=== PATIENT | male | born 1960 | race Caucasian/White ===

== ENCOUNTER 2018-01-23 01:42 | Emergency (ER) | payer BC ==
[~2018-01-23] VITALS: Ht 172.7 cm; Wt 77.1 kg
[~2018-01-23 01:42] MED LIST: ASPI81CH; EZET10; HYDACE5 PO; IBUP200; IBUP600 PO; METO25ER PO; OMEP20ER PO; OXYACE5T PO; PANT20; PROC10 PO; RABE20; RAMI5; RAMI5 PO; SIMV40 PO; TAMS.4ER PO; VALS80; ZOLP5 PO
[2018-01-23 04:09] LABS: Source, Urine Clean Catch
[2018-01-23 04:13] LABS: Bilirubin, Urine Neg (Neg); Blood, Urine Neg (Neg); Glucose Qualitative, Urine Neg (Neg); Ketones, Urine Neg (Neg); Leukocyte Esterase, Urine Neg (Neg); Nitrite, Urine Neg (Neg); Protein, Urine 2+ (Neg); Urobilinogen, Urine NORM (Normal)
[2018-01-23 04:13] LABS: BASOPHILS ABSOLUTE AUTO 0.03 K/mm3 (0.00-0.23); BASOPHILS PERCENT AUTO 0 % (0-2); EOSINOPHILS ABSOLUTE AUTO 0.04 K/mm3 (0.00-0.68); EOSINOPHILS PERCENT AUTO 0 % (0-6); Hematocrit 39.9 % (37.0-53.0); Hemoglobin 13.9 g/dL (13.5-17.5); IMMATURE GRAN ABSOLUTE AUTO 0.09 K/mm3 (0.00-0.10); IMMATURE GRAN PERCENT AUTO 1 % (0-1); LYMPHOCYTES ABSOLUTE AUTO 1.06 K/mm3 (0.84-5.20); LYMPHOCYTES PERCENT AUTO 5 % (21-46); MONOCYTES ABSOLUTE AUTO 1.13 K/mm3 (0.16-1.47); MONOCYTES PERCENT AUTO 6 % (4-13); Mean Corpuscular HGB 30.7 pg (26.0-34.0); Mean Corpuscular HGB Conc 34.8 g/dL (31.5-36.5); Mean Corpuscular Volume 88 fL (80-100); Mean Platelet Volume 9.7 fL (9.1-12.4); NEUTROPHILS ABSOLUTE AUTO 17.65 K/mm3 (1.96-9.15); NEUTROPHILS PERCENT AUTO 88 % (41-73); Platelet Count 332 K/mm3 (150-400); RDW Coefficient Variation 11.6 % (11.7-14.2); RDW Standard Deviation 37.2 fL (35.1-46.3); Red Blood Cell Count 4.53 M/mm3 (4.30-5.90)
[2018-01-23 04:19] LABS: Appearance, Urine Clear (Clear); Bacteria Few /hpf; Color, Urine Yellow (P-Yellow); Mucus Mod (0-Heavy); Red Blood Cells, Urine 0-2 /hpf (0-2); Squamous Epithelial Cells Not Seen /hpf (Few); White Blood Cells, Urine 0-2 /hpf (0-5)
[2018-01-23] MEDS ORDERED: PRAV20 PO (04:19)
[2018-01-23] MEDS ORDERED: FENO160 PO (04:19)
[2018-01-23] MEDS ORDERED: ZOLP10 PO (04:19)
[2018-01-23] MEDS ORDERED: Omeprazole20 M1 PO (04:20)
[2018-01-23] MEDS ORDERED: IBUP800 PO (04:20)
[2018-01-23] MEDS ORDERED: ZESTORETIC 20-121 EA PO (04:20)
[2018-01-23 04:32] LABS: Alanine Aminotransfer (ALT/SGP 45 U/L (12-78); Albumin, Blood 4.4 g/dL (3.4-5.0); Albumin/Globulin Ratio 1.2 (0.8-1.8); Alk Phos 56 U/L (50-136); Anion Gap 9 mmol/L (6-16); Aspartate Aminotrans (AST/SGOT 23 U/L (12-37); Bilirubin, Total 0.7 mg/dL (0.1-1.0); Blood Urea Nitrogen 22 mg/dL (8-24); Bun/Creatinine Ratio 21.6 (12.0-20.0); CO2, Blood 27 mmol/L (21-32); Calcium, Blood 9.3 mg/dL (8.5-10.1); Chloride, Blood 99 mmol/L (98-108); Creatinine, Blood 1.02 mg/dL (0.60-1.20); Globulin, Blood 3.7 g/dL (2.2-4.0); Glomerular Filtration Rate >60 (60-); Glucose, Blood 128 mg/dL (70-99); Potassium, Blood 3.7 mmol/L (3.5-5.5); Sodium, Blood 135 mmol/L (136-145); Total Protein, Blood 8.1 g/dL (6.4-8.2)
[2018-01-23] MEDS ORDERED: Cipro500 MG PO (06:32)
[2018-01-23] MEDS ORDERED: Percocet 10-321 EACH PO (06:32)
[2018-01-23] MEDS ORDERED: METR500 PO (06:32)
== END 2018-01-23 06:49 | disposition home or self-care (01) ==
LOC: ER 01:42
PROVIDERS: Emergency Medicine
DX: K57.32 Diverticulitis of large intestine without perforation or abscess without bleeding (principal); Z88.0 Allergy status to penicillin; Z88.1 Allergy status to other antibiotic agents; Z79.899 Other long term (current) drug therapy; I10 Essential (primary) hypertension; E78.5 Hyperlipidemia, unspecified
CPT/HCPCS: 36415; 74177; 80053; 81001; 83690; 85025; 96374; 99284; J2405; Q9967

== ENCOUNTER → 2018-07-18 | Outpatient (CLI) | payer BC ==
[~2018-07-18] MED LIST changes: +Cipro500 MG PO; +FENO160 PO; +IBUP800 PO; +METR500 PO; +Omeprazole20 M1 PO; +PRAV20 PO; +Percocet 10-321 EACH PO; +ZESTORETIC 20-121 EA PO; +ZOLP10 PO
[2018-07-18 13:29] LABS: Campylobacter Sp Not Detected (NOT DETECT); Plesiomonas Shigelloides Not Detected (NOT DETECT)
[2018-07-18 13:30] LABS: Adenovirus F 40/41 Not Detected (NOT DETECT); Astrovirus Not Detected (NOT DETECT); Cryptosporidium Not Detected (NOT DETECT); Cyclospora Cayetanensis Not Detected (NOT DETECT); E. Coli O157 Not Detected (NOT DETECT); Entamoeba Histolytica Not Detected (NOT DETECT); Enteroaggregative E. coli-EAEC Not Detected (NOT DETECT); Enteropathogenic E. coli-EPEC Not Detected (NOT DETECT); Enterotoxigenic E. coli-ETEC Not Detected (NOT DETECT); Giardia Lamblia Not Detected (NOT DETECT); Norovirus GI/GII Not Detected (NOT DETECT); Rotavirus A Not Detected (NOT DETECT); Salmonella Sp Not Detected (NOT DETECT); Sapovirus Not Detected (NOT DETECT); Shiga Toxin-prod E. coli-STEC Not Detected (NOT DETECT); Shigella/Enteroin E. coli-EIEC Not Detected (NOT DETECT); Vibrio Cholerae Not Detected (NOT DETECT); Vibrio Sp Not Detected (NOT DETECT); Yersinia Enterocolitica Not Detected (NOT DETECT)
== END ==
LOC: LAB 13:00 → LAB SHORT 13:00
PROVIDERS: Internal Medicine Gastroenterology
DX: R10.9 Unspecified abdominal pain (principal)
CPT/HCPCS: 83993; 87507

== ENCOUNTER 2018-09-17 08:52 | Day surgery (SDC) | payer BC ==
[~2018-09-17] VITALS: Ht 172.7 cm; Wt 77.3 kg
[~2018-09-17 08:52] MED LIST changes: +Aspir 8181 MG PO; +ERGO400 PO; +MULTI VITAMIN1 EACH PO; +Pravachol40 MG PO; +RIFA550T2 PO; +Vitamin B Comple1 EA PO; +ZESTORETIC 20-251 EA PO
[2018-09-17] MEDS ORDERED: TACR1 (09:25)
== END 2018-09-17 11:44 | disposition home or self-care (01) ==
LOC: ORSCSDS 08:52
PROVIDERS: Internal Medicine Gastroenterology
PROC: 0DBL8ZX Excision of Transverse Colon, Via Natural or Artificial Opening Endoscopic, Diagnostic (ICD-10-PCS; principal; 2018-09-17 10:15)
DX: K57.30 Diverticulosis of large intestine without perforation or abscess without bleeding (principal); D12.3 Benign neoplasm of transverse colon; I10 Essential (primary) hypertension; E78.00 Pure hypercholesterolemia, unspecified; E78.5 Hyperlipidemia, unspecified; E83.119 Hemochromatosis, unspecified; K21.9 Gastro-esophageal reflux disease without esophagitis; F32.9 Major depressive disorder, single episode, unspecified
CPT/HCPCS: 88305; J7120

== ENCOUNTER 2024-05-16 15:49 | Inpatient (IN) | payer BC ==
[~2024-05-16] VITALS: Ht 170.2 cm; Wt 68.0 kg
[~2024-05-16 15:49] MED LIST changes: -LEVO750 PO; -MIRALAX17 GM PO
[2024-05-16] MEDS ORDERED: Cefepime HCl 1,000 MG in NS 100 ML IV SCH (18:00)
[2024-05-16] MEDS ORDERED: FLU VACC TS2024-25(6MOS UP)/PF 45 MCG/0.5 ML SYRINGE IM SCH (18:05)
[2024-05-16] MEDS ORDERED: Ondansetron HCl 2 MG / ML 2ML Vial IV PRN (18:05)
[2024-05-16] MEDS ORDERED: NS 1,000 ML IV SCH (18:05)
[2024-05-16] MEDS ORDERED: FentaNYL Citrate 50 MCG/ML 2 ML Injection IV PRN (18:10)
[2024-05-16] MEDS ORDERED: MetroNIDAZOLE 500MG/NS 100 ml 100 ML IV SCH (18:30)
[2024-05-16] MEDS ORDERED: Enoxaparin 40 MG/0.4 ML SYR SC SCH (19:00)
[2024-05-16 19:13] LABS: International Normalized Ratio 1.1; Prothrombin Time Results 11.7 Sec (9.7-11.5)
[2024-05-16 20:03] VITALS: BP 175/93
--- NOTE | 2024-05-16 22:02 | NUR ---
PATIENT IS A NEW ADMIT FROM THE ED. AXO X4, ARRIVED VIA W/C AND INDEPENDENT IN ROOM. DENIES CHEST PAIN, SOB, AND N/V. REPORTED NO ABDOMINAL PAIN AT THIS TIME. SPOUSE PRESENT DURING ADMIT. ON ROOM AIR. DR GUZMAN IN ROOM FOR ASSESSMENT. REPORTS ADVANCE DIET TOLERATED. TELEMETRY PLACED NSR 92 PER TECH. NS STARTED AT 75 mL/HR X ONE BAG. IV ABX INFUSED. SURGICAL CONSULT TO BE CALLED IN THE A.M. VERIFIED WITH HEEL SLICKER THAT THERE IS NO ANSWERING SERVICE. PATIENT RESTNG AT THIS TIME. MIKE.
[2024-05-17] VITALS (7 sets, daily range): BP systolic 143–179; BP diastolic 86–108
--- NOTE | 2024-05-17 04:24 | NUR ---
SHIFT SUMMARY PATIENT HAD NO ACUTE CHANGES. AXO X4 AND INDEPENDENT IN ROOM. DENIES ABDOMNEN PAIN, CHEST PAIN, SOB, AND N/V. PIV INTACT. IV ABXS INFUSED. NS INFUSING @ 75 mL/HR X ONE BAG. TELE MONITOR NSR 92. HYPERTENISVE ON ADMIT. VSS/AFEBRILE NOW. SLEPT ON/OFF. COOPERATIVE WITH CARE. DIET TOLERATED. ONLY WATER AT THIS TIME TRIALED AND DENIES DISCOMFORT. COOPERATIVE WITH CARE. CALL LIGHT IN REACH. BED IN LOWEST POSITION. WILL CONTINUE TO MONITOR UNTIL DAY SHIFT NURSE ASSUMES CARE.
[2024-05-17 07:11] LABS: BASOPHILS ABSOLUTE AUTO 0.05 K/mm3 (0.00-0.23); BASOPHILS PERCENT AUTO 1 % (0-2); EOSINOPHILS ABSOLUTE AUTO 0.16 K/mm3 (0.00-0.68); EOSINOPHILS PERCENT AUTO 2 % (0-6); Hematocrit 37.6 % (37.0-53.0); IMMATURE GRAN ABSOLUTE AUTO 0.04 K/mm3 (0.00-0.10); IMMATURE GRAN PERCENT AUTO 1 % (0-1); LYMPHOCYTES ABSOLUTE AUTO 1.12 K/mm3 (0.84-5.20); LYMPHOCYTES PERCENT AUTO 14 % (21-46); MONOCYTES ABSOLUTE AUTO 1.08 K/mm3 (0.16-1.47); MONOCYTES PERCENT AUTO 13 % (4-13); Mean Corpuscular HGB 29.9 pg (26.0-34.0); Mean Corpuscular HGB Conc 34.6 g/dL (31.5-36.5); Mean Corpuscular Volume 86 fL (80-100); Mean Platelet Volume 9.2 fL (9.1-12.4); NEUTROPHILS ABSOLUTE AUTO 5.84 K/mm3 (1.96-9.15); NEUTROPHILS PERCENT AUTO 71 % (41-73); Platelet Count 352 K/mm3 (150-400); RDW Coefficient Variation 11.9 % (11.7-14.2); RDW Standard Deviation 38.1 fL (35.1-46.3); Red Blood Cell Count 4.35 M/mm3 (4.30-5.90); White Blood Cell Count 8.29 K/mm3 (4.00-11.30)
[2024-05-17 07:54] LABS: Albumin, Blood 3.4 g/dL (3.4-5.0); Albumin/Globulin Ratio 0.9 (0.8-1.8); Bilirubin, Total 0.5 mg/dL (0.1-1.0); Bun/Creatinine Ratio 21.4 (12.0-20.0); Calcium, Blood 9.7 mg/dL (8.5-10.1); Creatinine, Blood 1.17 mg/dL (0.60-1.20); Globulin, Blood 3.6 g/dL (2.2-4.0); Potassium, Blood 4.1 mmol/L (3.5-5.5)
[2024-05-17] MEDS ORDERED: Dicyclomine HCl 20 MG Tab PO PRN (08:15)
[2024-05-17] MEDS ORDERED: Zolpidem Tartrate 5 MG Tab PO PRN (08:20)
[2024-05-17] MEDS ORDERED: HydrALAZINE HCl 20 MG / ML 1ML Vial IV PRN (08:20)
[2024-05-17] MEDS ORDERED: HYDROcodone 5-APAP 325 TAB PO PRN (08:20)
[2024-05-17] MEDS ORDERED: Docusate Sodium/Senna 1 Tab PO PRN (08:20)
[2024-05-17] MEDS ORDERED: Polyethylene Glycol 3350 17 gm PO PRN (08:25)
[2024-05-17] MEDS ORDERED: Lactobacil 2-S.Thermo-Bifido 1 1 Cap PO SCH (09:00)
[2024-05-17] MEDS ORDERED: Lisinopril 20 MG Tab PO SCH (09:00)
[2024-05-17] MEDS ORDERED: HydroCHLOROthiazide 25 mg Tab PO SCH (09:00)
[2024-05-17] MEDS ORDERED: NS 250 ML IV PRN (17:05)
--- NOTE | 2024-05-17 18:48 | NUR ---
SHIFT SUMMARY: PATIENT TOLEARTING A CLEAR/FULL LIQUID DIET. PATIENT'S BLOOD PRESSURE HAS BEEN ELEVATED; GAVE 10 MG OF IV HYDRALAZINE AND BP IMPROVED. PATIENT HAS HAD TWO TELE EVENTS OF SINUS TACHYCARDIA OF 130-140. NON SUSTAINING. PATIENT CHECKED ON BOTH TIMES AND NO SIGNS OR SYMPTOMS OF DISTRESS. EITHER BEEN UP WALKING AROUND/GOING TO THE BATHROOM. HE STATES THAT HE FELT ANXIOUS AFTER GETTING THE HYDRALAZINE. THE TELE EVENTS AND THIS WERE REPORTED TO DR. GRACIA. NO NEW ORDERS. PATIENT IN BED, CALL LIGHT WITHIN REACH, NO SIGNS OR SYMPTOMS OF DISTRESS, AT BEDSIDE, PLAN OF CARE ON GOING' IV ANTIBIOTICS.
--- NOTE | 2024-05-17 21:03 | NUR ---
CONDOMINIUM MANAGER REPORTS HR TO 150 AND SUSTAINED @ 140. PATIENT NOTED TO BE UP TO BATHROOM. BACK IN BED AND HR BACK DOWN TO ST 108. HE REPORT HIS HR WENT UP ON DAY SHIFT WELL WHEN AMBULATING TO BR INDEPENDENTLY. MIKE.
[2024-05-17] MEDS ORDERED: Acetaminophen 325 MG TABLET PO PRN (22:10)
--- NOTE | 2024-05-17 22:43 | NUR ---
CONTINUOUS DRIER OPERATOR REPORTS HR BACK UP TO 150'S AND SLOWLY BACK DOWN TO 120'S. PATIENT AGAIN REPORTS HE WAS UP TO BATHROOM INDEPENDENTLY AND HAS HIGH HR AT HOME AND SITS IN CHAIR AND WAITS FOR IT TO GO DOWN. REPORTED YATES AND TYLENOL 650 MG GIVEN PER EMAR. WCTM.
--- NOTE | 2024-05-17 23:35 | NUR ---
BP 179/106 AND IV APRESOLINE 10 MG GIVEN FOR BP >160 BP 152/94 WHEN REASSESSED.
--- NOTE | 2024-05-18 00:19 | NUR ---
PATIENT RESTING IN BED. HEADACHE RESOLVED. HR ST 112 DOWN FROM 120'S. IV ABX'S INFUSING. PATIENT REFUSING AMBIEN FOR INSOMNIA AT THIS TIME. WCTM.
[2024-05-18 04:28] VITALS: BP 144/95
--- NOTE | 2024-05-18 04:39 | NUR ---
SHIFT SUMMARY PATIENT REPORTS MORE ANXIOUS THIS SHIFT SINCE DR FRIED RECOMMENDED SURGERY. REAL ESTATE AGENT/BROKER REPORTED MULTIPLE HR EVENTS UP TO ST 150 WHEN PATIENT UP TO BATHROOM INDEPENDENTLY. HR SLOWLY COMES DOWN WHEN BACK IN BED RESTING. CURRENTLY ST 108. PIV INTACT. IV ABXS INFUSED. FEBRILE START OF SHIFT 100.0 AND BACK DOWN TO 98.6 ON OWN. REPORTED YATES X ONE AND TYLENOL 650 MG GIVEN WITH GOOD EFFECT. BP ELEVATED AT START OF SHIFT 179/106 AND NOW 144/95. IV APRESOLINE 10 MG GIVEN (SEE NOTE). COOPERATIVE WITH CARE. CALL LIGHT IN REACH. BED IN LOWEST POSITION. WILL CONTINUE TO MONITOR UNTIL DAY SHIFT NURSE ASSUMES CARE.
[2024-05-18 07:43] LABS: BASOPHILS ABSOLUTE AUTO 0.03 K/mm3 (0.00-0.23); BASOPHILS PERCENT AUTO 0 % (0-2); EOSINOPHILS ABSOLUTE AUTO 0.18 K/mm3 (0.00-0.68); EOSINOPHILS PERCENT AUTO 3 % (0-6); Hematocrit 40.2 % (37.0-53.0); Hemoglobin 13.9 g/dL (13.5-17.5); IMMATURE GRAN ABSOLUTE AUTO 0.03 K/mm3 (0.00-0.10); IMMATURE GRAN PERCENT AUTO 0 % (0-1); LYMPHOCYTES ABSOLUTE AUTO 1.14 K/mm3 (0.84-5.20); LYMPHOCYTES PERCENT AUTO 16 % (21-46); MONOCYTES ABSOLUTE AUTO 0.83 K/mm3 (0.16-1.47); MONOCYTES PERCENT AUTO 12 % (4-13); Mean Corpuscular HGB Conc 34.6 g/dL (31.5-36.5); Mean Corpuscular Volume 87 fL (80-100); Mean Platelet Volume 9.7 fL (9.1-12.4); NEUTROPHILS ABSOLUTE AUTO 4.86 K/mm3 (1.96-9.15); NEUTROPHILS PERCENT AUTO 69 % (41-73); Platelet Count 404 K/mm3 (150-400); RDW Coefficient Variation 11.8 % (11.7-14.2); RDW Standard Deviation 37.5 fL (35.1-46.3); Red Blood Cell Count 4.64 M/mm3 (4.30-5.90); White Blood Cell Count 7.07 K/mm3 (4.00-11.30)
[2024-05-18 07:48] VITALS: BP 160/97
[2024-05-18 08:06] LABS: Albumin, Blood 3.4 g/dL (3.4-5.0); Albumin/Globulin Ratio 0.9 (0.8-1.8); Bilirubin, Total 0.4 mg/dL (0.1-1.0); Bun/Creatinine Ratio 17.8 (12.0-20.0); Calcium, Blood 9.5 mg/dL (8.5-10.1); Creatinine, Blood 1.01 mg/dL (0.60-1.20); Globulin, Blood 3.9 g/dL (2.2-4.0); Magnesium, Blood 1.6 mg/dL (1.6-2.4); Phosphorus, Blood 2.5 mg/dL (2.5-4.9); Potassium, Blood 3.8 mmol/L (3.5-5.5); Total Protein, Blood 7.3 g/dL (6.4-8.2)
[2024-05-18] MEDS ORDERED: ALPRAZolam 0.5 MG Tab PO PRN (10:30)
--- NOTE | 2024-05-18 14:20 | NUR ---
NOTIFIED BY CELLULOID TRIMMER LORNA SULLIVAN THAT PT HAVING HR OF 130. CHECKED PT. PT STRATES IS JUST RETURNING TO BED FROM BEING UP TO RESTROOM. PT DENIES ANY CHANGES IN HOW HE IS FEELING.
--- NOTE | 2024-05-18 14:26 | NUR ---
PT LYING IN BED. PER PCU HEART RATE IN 100'S PT STATES FEELING NO DIFFERENT THAN HE HAD BEEN
[2024-05-18 15:11] VITALS: BP 127/80
--- NOTE | 2024-05-18 15:42 | NUR ---
THIS RN HAS RECEIVED 3 CALLS FROM [employer] STATING THAT HIS HR WILL TACH UP TO 130S WITH EXERTION BUT WILL QUICKLY RETURN TO 100-105. PT DENIES SOB, CHEST PAIN, DIZZINESS DURING SPELL. DR. GARCIA NOTIFIED. CONTINUE TO MONITOR FOR CHANGES
--- NOTE | 2024-05-18 17:45 | NUR ---
NO ACUTE CHANGES, PT DENIES ABD PAIN, CHEST PAIN AND GENERALIZED PAIN. FULL LIQUID DIET WELL TOLORATED TODAY. DIET ADVANCED TO REGULAR. PT REPORTED BM THAT WAS SOFT BUT NO LONGER WATERY. ABLE TO MAKE NEEDS KNOWN, ORIENTED X4, INDEPENDENT IN THE ROOM
[2024-05-18 20:38] VITALS: BP 171/100
[2024-05-18 23:56] VITALS: BP 128/73
--- NOTE | 2024-05-18 23:57 | NUR ---
BP 171/100 AND IV APRESOLINE 10 MG GIVEN FOR SBP >160 BP 128/73 ON RECHECK. PATIENT RESTING IN BED WATCHING TV. WCTM.
[2024-05-19 02:17] VITALS: BP 118/76
--- NOTE | 2024-05-19 02:33 | NUR ---
EDUCATION PROGRAM ASSOCIATE REPORTS HR ST 150. PATIENT NOTED TO BE UP TO BATHROOM INDEPENDENTLY. HR 112, BACK DOWN WHEN BACK IN BED AND RESTED. WCTM.
--- NOTE | 2024-05-19 04:18 | NUR ---
SHIFT SUMMARY PATIENT HR ST 150 WHEN UP TO BR PER REPAIRER SASH AND DOOR. BACK DOWN TO ST 112 WHEN RESTING IN BED. AXOX 4 AND INDEPENDENT IN ROOM. DENIES CHEST PAIN, SOB, AND N/V. AFEBRILE. HYPERTENSIVE AT SHIFT CHANGE 171/100 AND 128/73 AFTER IV APRESOLINE 10 MG FOR SBP >160. PIV INTACT. IV ABXS INFUSED. TELE MONITOR NSR 99 AT START OF SHIFT. LIGHT SLEEPER. CALL LIGHT IN REACH. BED IN LOWEST POSITION. WILL CONTINUE TO MONITOR UNTIL DAY SHIFT NURSE ASSUMES CARE.
[2024-05-19 04:56] LABS: Hematocrit 40.8 % (37.0-53.0); Mean Corpuscular HGB 29.4 pg (26.0-34.0); Mean Corpuscular HGB Conc 34.3 g/dL (31.5-36.5); Mean Corpuscular Volume 86 fL (80-100); Mean Platelet Volume 9.4 fL (9.1-12.4); Platelet Count 410 K/mm3 (150-400); RDW Coefficient Variation 11.7 % (11.7-14.2); RDW Standard Deviation 36.5 fL (35.1-46.3); Red Blood Cell Count 4.76 M/mm3 (4.30-5.90); White Blood Cell Count 7.52 K/mm3 (4.00-11.30)
[2024-05-19 05:18] LABS: Bun/Creatinine Ratio 17.8 (12.0-20.0); Creatinine, Blood 1.01 mg/dL (0.60-1.20); Potassium, Blood 3.5 mmol/L (3.5-5.5)
[2024-05-19 08:40] VITALS: BP 158/106
[2024-05-19] MEDS ORDERED: LEVO750 PO (10:45)
[2024-05-19] MEDS ORDERED: MIRALAX17 GM PO (10:45)
--- NOTE | 2024-05-19 11:35 | NUR ---
PT DISCHARGED THE PT VERBALIZED UNDERSTANDING OF THE DC INSTRUCTIONS. THE PTS PRESCRIPTIONS WERE FAXED TO [facility]. THE PT WAS REMINDED TO FOLLOW UP WITH HIS PROVIDERS. THE PT WAS TRANSFERED VIA WHEELCHAIR ACCOMPANIED BY HIS AND THE HEAD UP OPERATOR
== END 2024-05-19 11:31 | disposition home or self-care (01) | DRG 392 ==
LOC: ER 15:49 → MEDS 17:54
PROVIDERS: Hospitalist; ADMIT Internal Medicine
DX: K57.20 Diverticulitis of large intestine with perforation and abscess without bleeding (principal); K57.00 Diverticulitis of small intestine with perforation and abscess without bleeding; E78.5 Hyperlipidemia, unspecified; K76.0 Fatty (change of) liver, not elsewhere classified; N40.0 Benign prostatic hyperplasia without lower urinary tract symptoms; L40.9 Psoriasis, unspecified; I12.9 Hypertensive chronic kidney disease with stage 1 through stage 4 chronic kidney disease, or unspecified chronic kidney disease; E11.9 Type 2 diabetes mellitus without complications; N18.2 Chronic kidney disease, stage 2 (mild); K21.9 Gastro-esophageal reflux disease without esophagitis; H26.9 Unspecified cataract; Z98.890 Other specified postprocedural states; Z79.82 Long term (current) use of aspirin; Z87.442 Personal history of urinary calculi; Z79.899 Other long term (current) drug therapy; Z88.0 Allergy status to penicillin; Z88.1 Allergy status to other antibiotic agents; Z79.811 Long term (current) use of aromatase inhibitors; Z98.52 Vasectomy status
CPT/HCPCS: 36415; 74177; 80048; 80053; 83036; 83735; 83880; 84100; 85025; 85027; 85610; 99284; A9270; J0360; J0692; J1650; J7030; J7050; Q9967

== ENCOUNTER → 2024-05-16 | Outpatient (CLI) | payer BC ==
[~2024-05-16] MED LIST changes: +Bentyl20 MG PO; +Fluticasone Pro15 GM TP; +LEVO750 PO; +MIRALAX17 GM PO; +TACR1 PO; +TEMOVATE15 G1 TP
[2024-05-16 12:19] LABS: BASOPHILS ABSOLUTE AUTO 0.06 K/mm3 (0.00-0.23); BASOPHILS PERCENT AUTO 0 % (0-2); EOSINOPHILS ABSOLUTE AUTO 0.06 K/mm3 (0.00-0.68); EOSINOPHILS PERCENT AUTO 0 % (0-6); Hematocrit 41.2 % (37.0-53.0); Hemoglobin 14.1 g/dL (13.5-17.5); IMMATURE GRAN ABSOLUTE AUTO 0.09 K/mm3 (0.00-0.10); IMMATURE GRAN PERCENT AUTO 1 % (0-1); LYMPHOCYTES ABSOLUTE AUTO 0.79 K/mm3 (0.84-5.20); LYMPHOCYTES PERCENT AUTO 5 % (21-46); MONOCYTES ABSOLUTE AUTO 0.86 K/mm3 (0.16-1.47); MONOCYTES PERCENT AUTO 6 % (4-13); Mean Corpuscular HGB Conc 34.2 g/dL (31.5-36.5); Mean Corpuscular Volume 88 fL (80-100); Mean Platelet Volume 9.5 fL (9.1-12.4); NEUTROPHILS PERCENT AUTO 88 % (41-73); Platelet Count 410 K/mm3 (150-400); RDW Coefficient Variation 11.9 % (11.7-14.2); RDW Standard Deviation 38.5 fL (35.1-46.3); White Blood Cell Count 15.06 K/mm3 (4.00-11.30)
[2024-05-16 12:29] LABS: Albumin, Blood 3.8 g/dL (3.4-5.0); Albumin/Globulin Ratio 0.9 (0.8-1.8); Bilirubin, Total 0.5 mg/dL (0.1-1.0); Bun/Creatinine Ratio 18.2 (12.0-20.0); Creatinine, Blood 1.48 mg/dL (0.60-1.20); Globulin, Blood 4.3 g/dL (2.2-4.0); Potassium, Blood 4.3 mmol/L (3.5-5.5); Total Protein, Blood 8.1 g/dL (6.4-8.2)
== END | disposition home or self-care (01) ==
LOC: LAB 12:14 → LAB SHORT 12:14
PROVIDERS: Physician Assistant
DX: R10.9 Unspecified abdominal pain (principal)
CPT/HCPCS: 80053; 83690; 85025

== ENCOUNTER 2024-08-19 08:47 | Inpatient (IN) | payer BC ==
[2024-08-19] VITALS (19 sets, daily range): BP systolic 139–187; BP diastolic 81–100
[~2024-08-19] VITALS: Ht 172.7 cm; Wt 69.1 kg
[~2024-08-19 08:47] MED LIST changes: +APRE80 PO; +ATOR40TA PO; +Acetaminophen 500 MG Tab PO SCH; +CATAPRES0.1 MG PO; +CeFAZolin Sodium 2,000 MG in NS 100 ML IV SCH; -ERGO400 PO; +Heparin Sodium 5000 Units/ML 1ML MDV SC SCH; +Heparin Sodium,Porcine 5,000 UNIT/0.5 ML SDV SC ONE; +LEVO750 PO; +Lactated Ringer's 1,000 ML IV SCH; +METF500 PO; +METO50ER PO; +MIRALAX17 GM PO; +MetroNIDAZOLE 500MG/NS 100 ml 100 ML IV SCH; +Vitamin D1000 UNI1 PO
[2024-08-19] MEDS ORDERED: Insulin Human Lispro 100 Units/ML 3ML Syringe SC ONE (09:25)
[2024-08-19] MEDS ORDERED: Bupivacaine 0.5% HCl 5 MG/ML 30MLVIAL ONE ×2 (09:25→12:51)
[2024-08-19] MEDS ORDERED: Midazolam HCl 1MG / ML 2ML Vial ONE (09:50)
[2024-08-19] MEDS ORDERED: FentaNYL Citrate 50 MCG/ML 2 ML Injection ONE ×2 (09:50→14:07)
[2024-08-19] MEDS ORDERED: propofoL 20 ML IV ONE (09:50)
[2024-08-19] MEDS ORDERED: Rocuronium Bromide 10 MG/ML 5ML Injection IV ONE (09:52)
[2024-08-19] MEDS ORDERED: Dexamethasone Sod Phos 10 MG/ML 1ML VIAL ONE (10:06)
[2024-08-19] MEDS ORDERED: FentaNYL Citrate 50 MCG/ML 2 ML Injection IV PRN ×2 (10:15→10:20)
[2024-08-19] MEDS ORDERED: Ondansetron HCl 2 MG / ML 2ML Vial IV PRN ×2 (10:15→13:45)
[2024-08-19] MEDS ORDERED: Prochlorperazine Edisylate 10 mg Vial IV PRN ×2 (10:15→19:25)
[2024-08-19] MEDS ORDERED: LORazepam 2 MG/ML 1ML Injection IV PRN (10:20)
[2024-08-19] MEDS ORDERED: Albuterol 2.5 MG/3 ML VIAL INH PRN (10:20)
[2024-08-19] MEDS ORDERED: Atropine Sulfate 0.1 MG/ML 10ML SYR IV PRN (10:20)
[2024-08-19] MEDS ORDERED: Labetalol HCL 5 MG/ML 4ML Injection (Single Dose) IV PRN (10:20)
[2024-08-19] MEDS ORDERED: HYDROmorphone HCl/Pf 1MG SYR IV PRN ×4 (10:20→19:40)
[2024-08-19] MEDS ORDERED: HydrALAZINE HCl 20 MG / ML 1ML Vial IV PRN (10:25)
[2024-08-19] MEDS ORDERED: Indocyanine Green 25 MG Vial XX ONE ×2 (11:44→12:18)
[2024-08-19] MEDS ORDERED: HYDROmorphone HCl/Pf 1MG SYR ONE ×2 (12:13→14:15)
[2024-08-19] MEDS ORDERED: Sugammadex Sodium 200 MG/2ML SDV (100 MG/ML) ONE (12:20)
[2024-08-19] MEDS ORDERED: Ondansetron HCl 2 MG / ML 2ML Vial ONE (12:20)
[2024-08-19] MEDS ORDERED: FLU VACC TS2024-25(6MOS UP)/PF 45 MCG/0.5 ML SYRINGE IM ONE (13:40)
[2024-08-19] MEDS ORDERED: OxyCODONE HCL 5 MG TAB PO PRN (13:40)
[2024-08-19] MEDS ORDERED: Labetalol HCL 5 MG/ML 4ML Injection (Single Dose) ONE (13:56)
[2024-08-19] MEDS ORDERED: HydrALAZINE HCl 20 MG / ML 1ML Vial ONE (14:07)
--- NOTE | 2024-08-19 14:30 | NUR ---
ARRIVAL NOTE PT TO ROOM 211 FROM PACU. TRANSFERED TO BED FROM [facility] W/ SLIDE SHEET. PT IS DROWSY, REPORTING PAIN WHILE AWAKE BUT INTERMITTENTLY SLEEPING. PT IS HTN BUT VS OTHERWISE STABLE, PT MEDICATED IN PACU FOR HTN PER PACU NURSE. 2LNC IN PLACE, O2 SATS >92%. PAS IN PLACE. DRESSINGS C/D/I. PT EDUCATED WHOLESALER LIGHT USE, CALL LIGHT IN REACH.
[2024-08-19] MEDS ORDERED: Insulin Regular 100 UNIT/ML 10ML Vial SC SCH (16:30)
[2024-08-19] MEDS ORDERED: Acetaminophen 325 MG TABLET PO SCH (18:00)
[2024-08-19] MEDS ORDERED: CloNIDine 0.1 MG Tab PO ONE (18:10)
[2024-08-19] MEDS ORDERED: HydroCHLOROthiazide 25 mg Tab PO ONE (18:10)
[2024-08-19] MEDS ORDERED: Lisinopril 20 MG Tab PO ONE (18:15)
--- NOTE | 2024-08-19 19:00 | NUR ---
SHIFT SUMMARY PT IS ALERT AND RESPONSIVE, FOLLOWING COMMANDS. PT HAS NOT BEEN OOB SINCE SURGERY. PT ALSO MEDICATED FOR NAUSEA, HAS NOT BEEN ABLE TO EAT ANYTHING BUT IS TOLERATING PO FLUIDS. RODGERS DRAINING YELLOW URINE. DRESSINGS TO ABD C/D/I. PT IS HYPERTENSIVE, MEDICATED FOR HTN BY CHARGE NURSE ALTHOUGH PT IS COMPLAINING OF PAIN. NOTIFIED DR. FRIED OF PT'S PAIN AND RECIEVED ORDER FOR INCREASED DILAUDID ORDER. PAS ON. SPOUSE AT BEDSIDE. PT STATES HE HAS "FELT SICK" AFTER ANESTHESIA BEFORE. HYPOTENSIVE BOWEL TONES. O2 SATS >92% ON 1LNC. CALL LIGHT IN REACH.
[2024-08-19] MEDS ORDERED: CloNIDine 0.1 MG Tab PO SCH (21:00)
[2024-08-20 00:13] VITALS: BP 122/71
--- NOTE | 2024-08-20 00:30 | NUR ---
RODGERS/FOOD BEVERAGE MANAGER OF CARE REMOVED RODGERS @0015. 500ML YELLOW URINE IN RODGERS BAG. URINAL PLACED @BEDSIDE. S/P SIGMOID COLECTOMY. LAP SITES C/D/I, NO DRAINAGE. PT DENIES NAUSEA @0000, EARLIER IN EVENING PT HIGHLY PAINFUL & NAUSEOUS, WAS MEDICATED W/COMPAZINE & DILAUDID. HTN NOTED @BEGINNING OF SHIFT, BP DECREASED POST PAIN MED & ANTIEMETIC. GAVE REPORT TO ROSIE Salvador
[2024-08-20 03:53] VITALS: BP 138/84
[2024-08-20 05:19] LABS: Hematocrit 37.8 % (37.0-53.0); Hemoglobin 13.2 g/dL (13.5-17.5); Mean Corpuscular HGB 30.5 pg (26.0-34.0); Mean Corpuscular HGB Conc 34.9 g/dL (31.5-36.5); Mean Corpuscular Volume 87 fL (80-100); Mean Platelet Volume 9.7 fL (9.1-12.4); Platelet Count 298 K/mm3 (150-400); RDW Coefficient Variation 12.6 % (11.7-14.2); RDW Standard Deviation 40.5 fL (35.1-46.3); Red Blood Cell Count 4.33 M/mm3 (4.30-5.90); White Blood Cell Count 11.86 K/mm3 (4.00-11.30)
--- NOTE | 2024-08-20 05:22 | NUR ---
SUMMARY- PT VOIDING AND AMBULATING INDEPENDANTLY TO BATHROOM. PT REPORTS SOME INCREASED PAIN THIS AM TX PER MAR WITH RELIEF. PT DENIES N/T OR N/V. PT WATCHING TV W/ NO COMPLAINTS. CALL LIGHT IN REACH.
[2024-08-20 06:13] LABS: Bun/Creatinine Ratio 18.9 (12.0-20.0); Calcium, Blood 9.2 mg/dL (8.5-10.1); Creatinine, Blood 1.06 mg/dL (0.60-1.20); Magnesium, Blood 1.6 mg/dL (1.6-2.4); Potassium, Blood 3.8 mmol/L (3.5-5.5)
[2024-08-20 07:23] VITALS: BP 132/83
[2024-08-20] MEDS ORDERED: Tacrolimus 1 MG Cap PO SCH (09:00)
[2024-08-20] MEDS ORDERED: Lisinopril 20 MG Tab PO SCH (09:00)
[2024-08-20] MEDS ORDERED: Metoprolol Succinate 50 MG TABCR PO SCH (09:00)
[2024-08-20] MEDS ORDERED: Fenofibrate, Micronized 134 MG Capsule PO SCH (09:00)
[2024-08-20] MEDS ORDERED: Atorvastatin 40 MG Tab PO SCH (09:00)
[2024-08-20] MEDS ORDERED: Omeprazole 20 MG CapCR PO SCH (09:00)
[2024-08-20] MEDS ORDERED: HydroCHLOROthiazide 25 mg Tab PO SCH (09:00)
[2024-08-20] MEDS ORDERED: Magnesium Oxide 400 MG Tab PO SCH (09:00)
[2024-08-20] MEDS ORDERED: Enoxaparin 40 MG/0.4 ML SYR SC SCH (09:00)
--- NOTE | 2024-08-20 09:52 | NUR ---
MORNING NOTE THIS RN ASSSUMED CARE AT APPROX 0715. PATIENT ALERT AND ORIENTED X4. INDEPENDENT IN ROOM. COMMUNICATING NEEDS EFFECTIVELY. VSS. SBP 130s. MAP >65. ON ROOM AIR, SATs >90%. RR EVEN, UNLABORED. POD 1 ROBOTIC TOTAL SIGMOID COLECTOMY. X5 LAP SITES C/D/I WITH WOUND GLUE. MANAGING PAIN PER EMAR. TOLERATING PO INTAKE. VOIDING. DENIES FLATULENCE. MD FRIED AT BEDSIDE THIS MORNING - PATIENT NEEDS TO PASS GAS PRIOR TO DC. AMBULATING IN HALLWAY THIS MORNING WITH . CALL LIGHT IN REACH.
[2024-08-20] MEDS ORDERED: DiphenhydrAMINE HCL 25 MG Cap PO PRN (12:10)
[2024-08-20 15:20] VITALS: BP 146/83
--- NOTE | 2024-08-20 16:56 | NUR ---
SHIFT SUMMARY NO ACUTE EVENTS SINCE MORNING NOTE. PATIENT REMAINS ALERT AND ORIENTED X4. INDEPENDENT IN ROOM. AMBULATING IN HALLWAY WITH . VSS. SBP 130s-140s. MAP >65. REMAINS ON ROOM AIR, SATs >90%. RR EVEN, UNLABORED. POD 1 ROBOTIC SIGMOID COLECTOMY - X5 LAP SITES C/D/I WITH WOUND GLUE. TOLERATING PO INTAKE. PAIN MANAGED PER EMAR. DENIES FLATULENCE AT THIS TIME. VOIDING. DID EXPERIENCE X1 EPISODE OF INCREASED REDNESS, SKIN IRRITATION AFTER BEDBATH AND CHANGING INTO NEW GOWN - RECEIVED ORDER FOR PO BENADRYL. REACTION RESOLVED FOLLOWING ADMINISTRATION. CALL LIGHT IN REACH. WILL CONTINUE TO MONITOR AND REPORT TO ONCOMING RN.
[2024-08-20 19:19] VITALS: BP 147/84
[2024-08-20] MEDS ORDERED: Simethicone 80 MG Chew PO PRN (19:20)
[2024-08-21] VITALS (7 sets, daily range): BP systolic 137–180; BP diastolic 91–108
--- NOTE | 2024-08-21 05:47 | NUR ---
SHIFT SUMMARY NOC. PT POD 2 FOR ROBOTIC SIGMOID COLECTOMY. PT REPORTS CONTINUED GAS PAINS AND ABDOMINAL PRESSURE. PT DENIES PASSING GAS. NEW ORDERS RECEIVED THIS SHIFT FOR SIMETHICONE, PT REPORTS SOME RELIEF. PT VOIDING URINE AND TOLERATING DIET. LAP SITES X5 C/D/I. PT DENIES ITCHING OF SKIN FROM GOWN ON PREVIOUS SHIFT, REDNESS NOTED ON CHEST AND BACK. PT MAKES NEEDS KNOWN, CALL LIGHT IN REACH.
[2024-08-21] MEDS ORDERED: Bisacodyl 10 MG Supp PR PRN (10:05)
[2024-08-21] MEDS ORDERED: Magnesium Sulf 2 GM/Water 50ML 50 ML IV ONE (10:10)
--- NOTE | 2024-08-21 10:12 | NUR ---
MORNING NOTE THIS RN ASSUMED CARE AT APPROX 0715. PATIENT ALERT AND ORIENTED X4 - COMMUNICATING NEEDS EFFECTIVELY. INDEPENDENT IN ROOM. SBP 160s - HOME BP MEDICATIONS ADMINISTERED PER EMAR. DENIES CHEST PAIN, PRESSURE. ON ROOM AIR, SATs >90%. RR EVEN, UNLABORED. POD 2 SIGMOID COLECTOMY - X5 LAP SITES WITH WOUND GLUE C/D/I. REPORTS ABD DISTENTION AND GAS PAIN - ENCOURAGING AMBULATION AND CHEWING GUM. REPORTS THAT GASX DID NOT HELP OVERNIGHT. TOLERATING PO INTAKE - DECREASED APPETITE RELATED TO ABD DISCOMFORT. VOIDING. AT BEDSIDE. CALL LIGHT IN REACH.
--- NOTE | 2024-08-21 17:33 | NUR ---
SHIFT SUMMARY NO ACUTE CHANGES SINCE MORNING NOTE. PATIENT REMAINS ALERT AND ORIENTED X4. INDEPENDENT IN ROOM. AMBULATING WITH FREQUENTLY IN HALLWAY. VSS. BP IMPROVED - SBP 150s. DENIES CHEST PAIN, PRESSURE. POD 2 ROBOTIC SIGMOID COLECTOMY. X5 LAP SITES C/D/I. REPORTED MILD NAUSEA THIS AFTERNOON - MEDICATED PER EMAR WITH IV ZOFRAN. CONTINUES TO DENY FLATULENCE - ABD SOFT, HYPERACTIVE BOWEL TONES X4. DECREASED APPETITE DUE TO ABD DISCOMFORT - CBG COVERAGE DECLINED AT PATIENT REQUEST. DECLINED SHOWER TODAY. VOIDING. CALL LIGHT IN REACH. WILL CONTINUE TO MONITOR AND REPORT TO ONCOMING RN.
--- NOTE | 2024-08-21 18:35 | NUR ---
PATIENT REPORTING SUDDEN INCREASED ABD PAIN WITH NAUSEA, NO VOMITING. ABD MODERATELY DISTENDED, MUCH MORE FIRM THAN PREVIOUS ASSESSMENT. CONTINUES TO DENY FLATULENCE. IV COMPAZINE AND IN COMPAZINE ADMINISTERED PER EMAR. MD FRIED NOTIFIED OF CHANGE. WILL CONTINUE TO MONITOR AND REPORT TO ONCOMING RN.
[2024-08-21] MEDS ORDERED: Dexamethasone Sodium Phosphate 4 MG/ML 1ML Vial IV ONE (19:20)
[2024-08-22] VITALS (8 sets, daily range): BP systolic 144–170; BP diastolic 93–101
[2024-08-22 05:25] LABS: Hemoglobin 14.7 g/dL (13.5-17.5); Mean Corpuscular HGB 30.7 pg (26.0-34.0); Mean Corpuscular HGB Conc 35.9 g/dL (31.5-36.5); Mean Corpuscular Volume 86 fL (80-100); Mean Platelet Volume 9.8 fL (9.1-12.4); Platelet Count 326 K/mm3 (150-400); RDW Coefficient Variation 12.3 % (11.7-14.2); RDW Standard Deviation 38.2 fL (35.1-46.3); Red Blood Cell Count 4.79 M/mm3 (4.30-5.90); White Blood Cell Count 8.51 K/mm3 (4.00-11.30)
[2024-08-22 05:44] LABS: Bun/Creatinine Ratio 24.3 (12.0-20.0); Calcium, Blood 9.8 mg/dL (8.5-10.1); Creatinine, Blood 1.07 mg/dL (0.60-1.20); Magnesium, Blood 2.1 mg/dL (1.6-2.4); Potassium, Blood 3.6 mmol/L (3.5-5.5)
[2024-08-22] MEDS ORDERED: NS 1,000 ML IV SCH ×2 (06:10→11:45)
--- NOTE | 2024-08-22 06:34 | NUR ---
SHIFT SUMMARY NOC. PT POD 3 FOR ROBOTIC SIGMOID COLECTOMY. PT REPORTS CONTINUED GAS PAINS IN ABDOMEN. PT SELF REPORTED A SMALL SOFT BM THIS SHIFT THAT WAS NOT VISUALIZED BY STAFF. PT ANXIOUS THIS SHIFT BUT SX IMPROVED AFTER SHOWER, DEEP BREATHING, AND LINEN CHANGE. PT DENIES PASSING GAS, PT MEDICATED WITH SIMETHICONE AND SCHEDULED TYLENOL. LAP SITES X5 C/D/I. PT RECEIVED 1X DOSE OF DECADRON. PT REPORTED IMPROVED PAIN THIS AM. CONTINUES TO HAVE HTN. CALL LIGHT IN REACH.
[2024-08-22] MEDS ORDERED: HydrALAZINE HCl 20 MG / ML 1ML Vial IV PRN (07:30)
--- NOTE | 2024-08-22 16:23 | NUR ---
SHIFT SUMMARY: PATIENT A/OX4, PLEASANT AND COOPERATIVE c CARE. PATIENT REPORTS N/V BEGINNING OF SHIFT, MEDICATED X1 FOR NAUSEA PER EMAR c GOOD EFFECT. PATIENT DIET CHANGED TO CL, TOLERATING WELL. PATIENT REPORTS, STILL NOT ABLE TO PASS GAS THIS SHIFT. PATIENT REPORTS, PAIN WELL CONTROLLED c EMAR SCHEDULED PAIN MEDS. PATIENT CONTINENT OF BLADDER, AMBULATES TO BATHROOM INDEPENDENTLY T/O SHIFT. PATIENT PIV TO L FOREARM INFUSING NS AT 50 MLS/HR. VITAL SIGNS REVIEWED. CALL LIGHT IN REACH.
--- NOTE | 2024-08-23 04:04 | NUR ---
SHIFT SUMMARY SRIRAM WAS ALERT AND FULLY ORIENTED ON ASSESMENT. PT DENIES NAUSEA TONIGHT. LAP SITES C/D/I. PAIN MODERATELY WELL MANAGED. PT DENIES PASSING GAS SO FAR THIS SHIFT. NO ACUTE EVENTS TONIGHT, NO NOTED CHANGES TO PT CONDITION.
[2024-08-23 04:16] VITALS: BP 138/98
[2024-08-23 05:29] LABS: Bun/Creatinine Ratio 34.5 (12.0-20.0); Calcium, Blood 9.3 mg/dL (8.5-10.1); Creatinine, Blood 1.1 mg/dL (0.60-1.20); Potassium, Blood 3.4 mmol/L (3.5-5.5)
[2024-08-23 07:32] VITALS: BP 182/107
[2024-08-23 11:07] VITALS: BP 118/90
--- NOTE | 2024-08-23 11:17 | NUR ---
dr christian in to see pt.
--- NOTE | 2024-08-23 11:27 | NUR ---
DISCUSSED K AND NA W/DR TAM. NO NEW ORDERS AT THIS TIME.
[2024-08-23] MEDS ORDERED: ALPRAZolam 0.25 MG Tab PO PRN (12:30)
[2024-08-23 16:18] VITALS: BP 138/86
--- NOTE | 2024-08-23 17:08 | NUR ---
SUMMARY PT REPORTS FEELING IMPROVED THIS AFTERNOON AFTER HAVING SMALL, UNFORMED BROWN BM. AMBULATED MULTIPLE TIMES INDEPENDENTLY IN [place]. TOLERATING CLEAR LIQUIDS. CALL LIGHT IN REACH.
[2024-08-23 20:01] VITALS: BP 173/98
[2024-08-24 00:45] VITALS: BP 149/89
[2024-08-24 04:16] VITALS: BP 146/91
--- NOTE | 2024-08-24 04:54 | NUR ---
SHIFT SUMMARY POD5 LAP SIGMOID COLLECTOMY. X5 LAP SITES ARE C/D/I, FRANCINE. VSS. PT LEFT ON AND OFF T/O THE NIGHT. PT SHOWERED W/NO ACUTE EVENTS. PT TOLLERATING PO INTAKE W/O N.V. PT REPORTS ONE VERY SMALL BM AND ONE SMALL FLATTUS. PT MEDICATED FOR PAIN W/SCHEDULED TYLENOL AND GAS X. OVERALL, NO ACUTE EVENTS NOTED. AWAITING BOWEL FUNCTION TO RETURN.
[2024-08-24 07:58] VITALS: BP 175/95
--- NOTE | 2024-08-24 13:35 | NUR ---
DR TAM IN TO SEE PT.
[2024-08-24 16:09] VITALS: BP 149/94
--- NOTE | 2024-08-24 17:16 | NUR ---
SUMMARY PT HAS NOT HAD ANY MORE BMS OR PASSED FLATUS THIS SHIFT. NAUSEATED/HAD UNMEASURED EMESIS THIS AFTERNOON. MEDICATED PER ORDERS FOR N/V. PT HAS AMBULATED IN [place]. INDEPENDENT IN ROOM. CALL LIGHT IN REACH. SPOUSE BEDSIDE.
[2024-08-24 21:07] VITALS: BP 151/99
[2024-08-25 03:22] VITALS: BP 161/91
[2024-08-25 06:17] LABS: BASOPHILS ABSOLUTE AUTO 0.04 K/mm3 (0.00-0.23); BASOPHILS PERCENT AUTO 0 % (0-2); EOSINOPHILS ABSOLUTE AUTO 0.14 K/mm3 (0.00-0.68); EOSINOPHILS PERCENT AUTO 1 % (0-6); Hematocrit 39.5 % (37.0-53.0); Hemoglobin 14.3 g/dL (13.5-17.5); IMMATURE GRAN ABSOLUTE AUTO 0.03 K/mm3 (0.00-0.10); IMMATURE GRAN PERCENT AUTO 0 % (0-1); LYMPHOCYTES ABSOLUTE AUTO 1.98 K/mm3 (0.84-5.20); LYMPHOCYTES PERCENT AUTO 19 % (21-46); MONOCYTES ABSOLUTE AUTO 1.15 K/mm3 (0.16-1.47); MONOCYTES PERCENT AUTO 11 % (4-13); Mean Corpuscular HGB 30.6 pg (26.0-34.0); Mean Corpuscular HGB Conc 36.2 g/dL (31.5-36.5); Mean Corpuscular Volume 85 fL (80-100); Mean Platelet Volume 9.9 fL (9.1-12.4); NEUTROPHILS ABSOLUTE AUTO 6.99 K/mm3 (1.96-9.15); NEUTROPHILS PERCENT AUTO 68 % (41-73); Platelet Count 349 K/mm3 (150-400); RDW Coefficient Variation 12.4 % (11.7-14.2); RDW Standard Deviation 37.5 fL (35.1-46.3); Red Blood Cell Count 4.67 M/mm3 (4.30-5.90); White Blood Cell Count 10.33 K/mm3 (4.00-11.30)
[2024-08-25 06:34] LABS: Bun/Creatinine Ratio 39.3 (12.0-20.0); Calcium, Blood 9.4 mg/dL (8.5-10.1); Creatinine, Blood 1.12 mg/dL (0.60-1.20); Magnesium, Blood 2.2 mg/dL (1.6-2.4); Potassium, Blood 3.6 mmol/L (3.5-5.5)
--- NOTE | 2024-08-25 07:22 | NUR ---
SHIFT SUMMARY; SLEPT IN LONG INTERVALS, WALKED IN HALLWAY. MEDICATED FOR ABD PAIN. NO NAUSEA
[2024-08-25 07:27] VITALS: BP 148/93
[2024-08-25 14:43] VITALS: BP 142/94
[2024-08-25 19:04] VITALS: BP 138/85
--- NOTE | 2024-08-25 19:25 | NUR ---
SHIFT SUMMARY POD6 LAP SIGMOID COLECTOMY, A/XO4, VSS, TOLEARTING DIET TODAY AND HE WAS NOT NAUSEATED FROM THE SMELL OF FOOD LIKE HE HAD BEEN PREVIOUSLY, HE AMBULATED IN THE HALLS SEVERAL TIMES TODAY WITH HIS , PAIN MANAGED PER EMAR. NO ACUTE EVENTS THIS SHIFT, CALL LIGHT IN REACH.
[2024-08-26 03:52] VITALS: BP 149/97
--- NOTE | 2024-08-26 04:48 | NUR ---
SUMMARY AOX4, IND, WALKING HALLS T/O NIGHT. PATIENT STARTED ON REG DIET 08/25/24 REPORTS BM BUT NO FLATUS. PATIENT AWOKE AROUND MIDNIGHT WITH STOMACH PAIN AND PRESSURE IN THE ABD. ADVISED WALKING AND MEDICATED WITH SIMETHICONE. TOLERATING CL INTAKE. ABD MILDLY DISTENDED WITH HYPOACTIVE BOWEL TONES. VSS, CALL LIGHT IS IN REACH.
[2024-08-26 07:13] VITALS: BP 145/92
--- NOTE | 2024-08-26 17:45 | NUR ---
DISCHARGE SUMMARY POD7 LAP SIGMOID COLECTOMY, A/OX4, VSS, TOLERATING PO, PASSING FLATUS, MULTIPLE BM'S, AMBULATING INDEPENDENTLY, PAIN WELL MANAGED. DISCUSSED DSICHARGE INSTRUCTIONS WITH HIM AND HIS INCLUDING HOME CARE, MEDICATIONS, AND FOLLOW UP APPOINTMENT. IV ACCESS REMOVED, LEFT AMBUALTOR TO GO HOME.
== END 2024-08-26 15:20 | disposition home or self-care (01) | DRG 331 ==
LOC: MEDS 08:47 → SURS 08:47 → PRE IP 10:00 → SURS 14:08
PROVIDERS: ADMIT Surgery
PROC: 8E0W4CZ Robotic Assisted Procedure of Trunk Region, Percutaneous Endoscopic Approach (ICD-10-PCS; 2024-08-19)
PROC: 0DBN4ZZ Excision of Sigmoid Colon, Percutaneous Endoscopic Approach (ICD-10-PCS; principal; 2024-08-19 10:00)
DX: K57.32 Diverticulitis of large intestine without perforation or abscess without bleeding (principal); Z28.21 Immunization not carried out because of patient refusal; K21.9 Gastro-esophageal reflux disease without esophagitis; E78.5 Hyperlipidemia, unspecified; I10 Essential (primary) hypertension; E11.9 Type 2 diabetes mellitus without complications; L40.9 Psoriasis, unspecified; Z79.899 Other long term (current) drug therapy; Z79.84 Long term (current) use of oral hypoglycemic drugs; Z88.0 Allergy status to penicillin
CPT/HCPCS: 36415; 80048; 82947; 83735; 84100; 85025; 85027; 88307; 94760; 94762; A9270; J0360; J0690; J0780; J1100; J1171; J1644; J1650; J1815; J2250; J2405; J2704; J3010; J3475; J7030; J7507